=== PATIENT | male | born 1985 | race Caucasian/White ===

== ENCOUNTER 2022-01-31 22:54 | Emergency (ER) | payer MEDICAID ==
[~2022-01-31] VITALS: Ht 190.5 cm; Wt 113.4 kg
--- NOTE | 2022-02-01 00:10 | NUR ---
PATIENT BIBSELF C/O RIGHT SIDE RIB PAIN RAD TO BACK S/P FALL FROM LADDER, DID NOT FALL TO THE GROUND. PATIENT IS A/O X 4, RR EVEN AND UNLABORED NO SOB NOTED. PATIENT TAKEN TO ER BED 01. PATIENT CONNECTED TO MONITORS.
[2022-02-01] MEDS ORDERED: HYDROCODONE/APAP 5/325MG TABLET ONE (00:17)
[2022-02-01] MEDS ORDERED: HYDROCODONE/APAP 5/325MG TABLET PO ONE (00:30)
--- NOTE | 2022-02-01 01:21 | NUR ---
PERSONNEL SPECIALIST AT PT'S BEDSIDE
[2022-02-01] MEDS ORDERED: HYDR-4275 PO (03:22)
--- NOTE | 2022-02-01 03:36 | NUR ---
Patient discharged to home in stable condition. Written and verbal after care instructions given. Patient verbalizes understanding of instruction. PT ambulatory with a steady gait
[2022-02-01 03:37] VITALS: BP 92/54
== END 2022-02-01 03:54 | disposition home or self-care (01) ==
LOC: ER 22:55
DX: S22.41XA Multiple fractures of ribs, right side, initial encounter for closed fracture (principal); W11.XXXA Fall on and from ladder, initial encounter; Y93.89 Activity, other specified; Y92.89 Other specified places as the place of occurrence of the external cause; Y99.8 Other external cause status
CPT/HCPCS: 71100-TC